=== PATIENT | female | born 2000 | race African-American/Black ===

== ENCOUNTER 2025-05-10 00:47 | Emergency (ER) | payer BC, MEDICAID, OTHER ==
[~2025-05-10] VITALS: Ht 162.6 cm; Wt 86.2 kg
[2025-05-10 01:03] VITALS: O2SAT 100
[2025-05-10 02:04] LABS: BASOPHILS % 0.4 % (0.0-2.0); EOSINOPHILS % 4.1 % (0.0-5.0); HEMATOCRIT. 38.7 % (36.0-48.0); HEMOGLOBIN. 12.9 g/dL (12.0-16.0); LYMPHOCYTES % 39.4 % (20.0-50.0); MEAN PLATELET VOLUME 8.6 fl (7.4-10.4); MONOCYTES % 6.1 % (2.0-8.0); NEUTROPHILS % 50.0 % (40.0-76.0); PLATELET 265 x1000/uL (130-400); RED BLOOD CELL COUNT 4.55 mill/uL (4.2-5.4); RED CELL DISTRIBUTION WIDTH 12.6 % (11.6-14.6)
[2025-05-10] MEDS: ONDANSETRON HCL 4MG/2ML INJ IV ONE (02:09)
[2025-05-10] MEDS: SODIUM CHLORIDE 0.9% 1,000 ML IV ONE (02:10)
[2025-05-10 02:23] LABS: CREATININE 0.8 mg/dL (0.6-1.0); UREA NITROGEN BLOOD 11 mg/dL (9-23)
[2025-05-10 02:25] LABS: ASPARTATE AMINOTRANSFERASE 17 IU/L (<34); BILIRUBIN DIRECT < 0.1 mg/dL (<=3.0)
[2025-05-10 02:26] LABS: BILIRUBIN TOTAL 0.2 mg/dL (0.1-1.0); PROTEIN TOTAL 6.6 g/dL (6.0-8.3)
[2025-05-10] MEDS: ONDANSETRON HCL 4MG/2ML INJ IV SCH (03:54)
[2025-05-10 04:53] LABS: HCG SCREEN NEGATIVE
[2025-05-10] MEDS ORDERED: ONDA4TAB50 MT (04:54)
[2025-05-10] MEDS: MAGNESIUM/ALUMINUM HYDROXIDE/SIMETHICONE 30ML UDC PO SCH (05:05)
[2025-05-10 05:10] VITALS: BP 112/80; PULSE 85; RESP 16; TEMP 36.8; O2SAT 99
== END 2025-05-10 05:28 | disposition home or self-care (01) ==
LOC: ER 00:47
DX: R11.2 Nausea with vomiting, unspecified (principal); T40.715A Adverse effect of cannabis, initial encounter; F12.90 Cannabis use, unspecified, uncomplicated
CPT/HCPCS: 80076; 80048; 80320; 84703; 83690; 85025; 36415; 96361; 96374; 96375; 99284; J2405; J7030; G0480